=== PATIENT | female | born 1985 | race Caucasian/White ===

== ENCOUNTER 2017-12-15 18:51 | Inpatient (IN) | payer OTHER ==
[2017-12-16 00:14] LABS: ADD MAN DIFF? NO
[2017-12-16 00:17] LABS: BASOPHILS % 0.6 % (0.0-2.0); EOSINOPHILS # 0.1 10^3/ul (0.0-0.5); EOSINOPHILS % 2.2 % (0.0-7.0); HEMATOCRIT 43.3 % (37.0-47.0); HEMOGLOBIN 14.3 g/dl (12.0-16.0); LYMPHOCYTES # 2.6 10^3/ul (0.8-2.9); LYMPHOCYTES % 39.7 % (15.0-51.0); MEAN CORPUSCULAR HEMOGLOBIN 30.3 pg (29.0-33.0); MEAN CORPUSCULAR VOLUME 91.7 fl (82.0-101.0); MEAN PLATELET VOLUME 9.5 fl (7.4-10.4); MONOCYTE # 0.5 10^3/ul (0.3-0.9); MONOCYTES % 7.1 % (0.0-11.0); NEUTROPHIL # 3.3 10^3/ul (1.6-7.5); NEUTROPHILS % 50.2 % (39.0-77.0); PLATELET COUNT 305 10^3/UL (140-415); RED BLOOD COUNT 4.72 10^6/ul (4.20-5.40); RED CELL DISTRIBUTION WIDTH 11.6 % (11.5-14.5)
[2017-12-16 00:17] LABS: WHITE BLOOD COUNT 6.5 10^3/ul (4.8-10.8)
[2017-12-16] MEDS: METHYLPREDNISOLONE 125 MG INJ IV (00:18)
[2017-12-16] MEDS: SOD CHLORIDE 0.9% 500 ML IV (00:18)
[2017-12-16 00:40] LABS: ANION GAP 15 (8-16); BLOOD UREA NITROGEN 15 mg/dl (7-20); CALCIUM 9.3 mg/dl (8.4-10.2); CARBON DIOXIDE 23 mmol/L (21-31); CHLORIDE 107 mmol/L (97-110); CREATININE 0.53 mg/dl (0.44-1.00); GLUCOSE 98 mg/dl (70-220); SODIUM 141 mmol/L (135-144)
[2017-12-16] MEDS ORDERED: morphine 2 MG INJ IV (10:30)
[2017-12-16] MEDS ORDERED: ONDANSETRON 4 MG INJ IV (10:30)
[2017-12-16] MEDS ORDERED: GLUCAGON 1 MG INJ IM (13:00)
[2017-12-16] MEDS ORDERED: GLUCOSE GEL 15 GRAM TUBE PO ×2 (13:00)
[2017-12-16] MEDS ORDERED: GLUCOSE GEL 15 GRAM TUBE BUCCAL (13:00)
[2017-12-16] MEDS ORDERED: DEXTROSE 50% 50 ML SYRINGE IV ×2 (13:00)
[2017-12-16] MEDS: ACCU-CHEK XX ×2 (17:25→20:55)
[2017-12-16] MEDS: metFORMIN 500 MG TAB PO (18:04)
[2017-12-16] MEDS: DOXYCYCLINE 100 MG TAB PO (20:55)
[2017-12-16] MEDS: METHYLPRED. NA SUCC 1,000 MG in DEXTROSE 5% 50 ML IVPB (21:33)
[2017-12-16] MEDS ORDERED: morphine LIQ (10 MG/5 ML) CUP PO (23:00)
[2017-12-17 01:26] LABS: ADD UMIC YES; UR ASCORBIC ACID NEGATIVE (NEGATIVE); UR BILIRUBIN (Dip) NEGATIVE (NEGATIVE); UR BLOOD (Dip) 2+ mg/dL (NEGATIVE); UR CLARITY SLIGHTLY CLOUDY (CLEAR); UR COLOR YELLOW (YELLOW); UR GLUCOSE (Dip) NEGATIVE (NEGATIVE); UR KETONES (Dip) NEGATIVE (NEGATIVE); UR LEUKOCYTE ESTERASE (Dip) 2+ Leu/ul (NEGATIVE); UR MUCUS FEW /HPF (NONE SEEN); UR NITRITE (Dip) NEGATIVE (NEGATIVE); UR RBC 3 /HPF (0-5); UR SPECIFIC GRAVITY (Dip) 1.033 (1.003-1.030); UR SQUAMOUS EPITHELIAL CELL FEW /HPF (FEW); UR TOTAL PROTEIN (Dip) NEGATIVE (NEGATIVE); UR UROBILINOGEN (Dip) NEGATIVE (NEGATIVE); UR WBC 29 /HPF (0-5)
[2017-12-17 05:17] LABS: ADD MAN DIFF? NO
[2017-12-17 05:21] LABS: BASOPHILS % 0.1 % (0.0-2.0); HEMATOCRIT 42.2 % (37.0-47.0); HEMOGLOBIN 13.9 g/dl (12.0-16.0); LYMPHOCYTES # 0.8 10^3/ul (0.8-2.9); LYMPHOCYTES % 7.4 % (15.0-51.0); MEAN CORPUSCULAR HEMOGLOBIN 30.5 pg (29.0-33.0); MEAN CORPUSCULAR HGB CONC 32.9 g/dl (32.0-37.0); MEAN CORPUSCULAR VOLUME 92.5 fl (82.0-101.0); MONOCYTE # 0.1 10^3/ul (0.3-0.9); MONOCYTES % 0.5 % (0.0-11.0); NEUTROPHIL # 9.7 10^3/ul (1.6-7.5); NEUTROPHILS % 91.6 % (39.0-77.0); PLATELET COUNT 289 10^3/UL (140-415); RED BLOOD COUNT 4.56 10^6/ul (4.20-5.40); RED CELL DISTRIBUTION WIDTH 11.7 % (11.5-14.5)
[2017-12-17 05:21] LABS: WHITE BLOOD COUNT 10.6 10^3/ul (4.8-10.8)
[2017-12-17 05:49] LABS: ALANINE AMINOTRANSFERASE 15 IU/L (13-69); ALBUMIN 4.6 g/dl (3.3-4.9); ALBUMIN/GLOBULIN RATIO 1.39; ALKALINE PHOSPHATASE 44 IU/L (42-121); ANION GAP 17 (8-16); ASPARTATE AMINO TRANSFERASE 19 IU/L (15-46); BILIRUBIN,INDIRECT 0.2 mg/dl (0-1.1); BILIRUBIN,TOTAL 0.2 mg/dl (0.2-1.3); BLOOD UREA NITROGEN 21 mg/dl (7-20); CALCIUM 9.2 mg/dl (8.4-10.2); CARBON DIOXIDE 25 mmol/L (21-31); CHLORIDE 105 mmol/L (97-110); CREATININE 0.61 mg/dl (0.44-1.00); GLUCOSE 245 mg/dl (70-220); POTASSIUM 4.7 mmol/L (3.5-5.1); SODIUM 142 mmol/L (135-144); TOTAL PROTEIN 7.9 g/dl (6.1-8.1)
[2017-12-17] MEDS ORDERED: metFORMIN 500 MG TAB PO (07:50)
[2017-12-17] MEDS: DOXYCYCLINE 100 MG TAB PO ×2 (08:32→22:03)
[2017-12-17] MEDS: LANSOPRAZOLE 30 MG CAP PO (08:32)
[2017-12-17] MEDS: ACCU-CHEK XX (08:36)
[2017-12-17] MEDS: INSULIN ASPART [NOVOLOG] 3 ML PEN SC ×3 (13:09→21:00)
[2017-12-17] MEDS ORDERED: LEVOFLOXACIN 250 MG TAB NGT (17:00)
[2017-12-17] MEDS: metFORMIN 500 MG TAB PO (17:53)
[2017-12-17] MEDS: LEVOFLOXACIN 250 MG TAB PO (17:54)
[2017-12-17] MEDS: METHYLPRED. NA SUCC 1,000 MG in DEXTROSE 5% 50 ML IVPB (22:05)
[2017-12-17] MEDS: NPH, HUMAN INSULIN ISOPHANE 3ML VIAL SC (22:13)
[2017-12-18] MEDS ORDERED: DIMETHYL FUMARATE 240 MG XX
[2017-12-18] MEDS: LEVOFLOXACIN 250 MG TAB PO (05:06)
[2017-12-18 05:43] LABS: ADD MAN DIFF? NO
[2017-12-18 05:47] LABS: WHITE BLOOD COUNT 10.4 10^3/ul (4.8-10.8)
[2017-12-18 05:47] LABS: BASOPHILS % 0.1 % (0.0-2.0); HEMOGLOBIN 14.2 g/dl (12.0-16.0); LYMPHOCYTES # 0.9 10^3/ul (0.8-2.9); LYMPHOCYTES % 8.2 % (15.0-51.0); MEAN CORPUSCULAR HEMOGLOBIN 30.1 pg (29.0-33.0); MEAN CORPUSCULAR VOLUME 91.3 fl (82.0-101.0); MEAN PLATELET VOLUME 10.2 fl (7.4-10.4); MONOCYTES % 0.3 % (0.0-11.0); NEUTROPHIL # 9.5 10^3/ul (1.6-7.5); NEUTROPHILS % 90.8 % (39.0-77.0); PLATELET COUNT 312 10^3/UL (140-415); RED BLOOD COUNT 4.71 10^6/ul (4.20-5.40); RED CELL DISTRIBUTION WIDTH 11.9 % (11.5-14.5)
[2017-12-18 06:09] LABS: ANION GAP 17 (8-16); BLOOD UREA NITROGEN 19 mg/dl (7-20); CALCIUM 9.3 mg/dl (8.4-10.2); CARBON DIOXIDE 23 mmol/L (21-31); CHLORIDE 106 mmol/L (97-110); CREATININE 0.64 mg/dl (0.44-1.00); GLUCOSE 232 mg/dl (70-220); POTASSIUM 4.3 mmol/L (3.5-5.1); SODIUM 142 mmol/L (135-144)
[2017-12-18] MEDS: DOXYCYCLINE 100 MG TAB PO ×2 (08:49→20:43)
[2017-12-18] MEDS: LANSOPRAZOLE 30 MG CAP PO (08:49)
[2017-12-18] MEDS: DIMETHYL FUMARATE 240 MG PO ×2 (08:50→20:44)
[2017-12-18] MEDS: INSULIN ASPART [NOVOLOG] 3 ML PEN SC ×4 (08:55→20:54)
[2017-12-18] MEDS: metFORMIN 500 MG TAB PO (17:26)
[2017-12-18] MEDS: METHYLPRED. NA SUCC 1,000 MG in DEXTROSE 5% 50 ML IVPB (20:44)
[2017-12-18] MEDS: NPH, HUMAN INSULIN ISOPHANE 3ML VIAL SC (20:51)
[2017-12-19 05:11] LABS: ADD MAN DIFF? NO; BASOPHILS % 0.1 % (0.0-2.0); HEMATOCRIT 43.1 % (37.0-47.0); HEMOGLOBIN 14.4 g/dl (12.0-16.0); LYMPHOCYTES % 7.5 % (15.0-51.0); MEAN CORPUSCULAR HEMOGLOBIN 30.8 pg (29.0-33.0); MEAN CORPUSCULAR HGB CONC 33.4 g/dl (32.0-37.0); MEAN CORPUSCULAR VOLUME 92.1 fl (82.0-101.0); MEAN PLATELET VOLUME 10.1 fl (7.4-10.4); MONOCYTE # 0.1 10^3/ul (0.3-0.9); MONOCYTES % 0.6 % (0.0-11.0); NEUTROPHIL # 11.6 10^3/ul (1.6-7.5); NEUTROPHILS % 91.2 % (39.0-77.0); PLATELET COUNT 312 10^3/UL (140-415); RED BLOOD COUNT 4.68 10^6/ul (4.20-5.40); RED CELL DISTRIBUTION WIDTH 12.1 % (11.5-14.5)
[2017-12-19 05:11] LABS: WHITE BLOOD COUNT 12.7 10^3/ul (4.8-10.8)
[2017-12-19 05:50] LABS: ANION GAP 17 (8-16); BLOOD UREA NITROGEN 19 mg/dl (7-20); CALCIUM 9.5 mg/dl (8.4-10.2); CARBON DIOXIDE 24 mmol/L (21-31); CHLORIDE 104 mmol/L (97-110); GLUCOSE 198 mg/dl (70-220); POTASSIUM 4.3 mmol/L (3.5-5.1); SODIUM 141 mmol/L (135-144)
[2017-12-19] MEDS: LEVOFLOXACIN 250 MG TAB PO (06:10)
[2017-12-19] MEDS: DOXYCYCLINE 100 MG TAB PO ×2 (08:44→16:49)
[2017-12-19] MEDS: LANSOPRAZOLE 30 MG CAP PO (08:44)
[2017-12-19] MEDS: DIMETHYL FUMARATE 240 MG PO (08:45)
[2017-12-19] MEDS: INSULIN ASPART [NOVOLOG] 3 ML PEN SC ×2 (08:49→13:00)
[2017-12-19] MEDS: metFORMIN 500 MG TAB PO (16:49)
== END 2017-12-19 17:00 | disposition home or self-care (01) | DRG 59 ==
LOC: E/R 18:51 → MS1 12-16 02:51
DX: G35 Multiple sclerosis (principal); N39.0 Urinary tract infection, site not specified; E11.9 Type 2 diabetes mellitus without complications
CPT/HCPCS: 70551; 80048; 80053; 81001; 82962; 83036; 84703; 85025; 87040; 87086; 96374; 99285-25